=== PATIENT | female | born 1955 | race Two or more races ===

== ENCOUNTER → 2016-09-23 | Outpatient (CLI) | payer OTHER ==
--- NOTE | 2016-09-23 10:35 | RADRPT ---
PROCEDURE: Left knee x-ray CLINICAL INDICATION: Pain TECHNIQUE: AP, lateral, PA flexion and sunrise views were obtained of the left knee were obtained. COMPARISON: None FINDINGS: There is mild degenerative joint disease of the left knee to the medial compartment. There is a cur vilinear lucency involving the inferior distal medial femoral condyle consistent with avascular necr osis. No acute fracture or dislocation. The bony mineralization is normal without focal bony blast ic or lytic lesions. No evidence of a left knee joint effusion. Soft tissues are otherwise unremar kable. IMPRESSION: 1. Mild degenerate joint disease left knee. 2. Changes involving the medial left femoral condyle as above consistent with avascular process. A n MRI of the left knee is suggested if clinically indicated for further evaluation. RPTAT:AAJJ Physician Emelia Date Time Electronically viewed and signed by Physician Emelia on 09/23/2016 10:35 BM/
== END | disposition home or self-care (01) ==
LOC: HKI 10:17
PROVIDERS: ATTEND Orthopaedic Surgery
DX: M25.562 Pain in left knee (principal); S83.232A Complex tear of medial meniscus, current injury, left knee, initial encounter; S80.02XA Contusion of left knee, initial encounter
CPT/HCPCS: 73564; Z7500; G0463

== ENCOUNTER → 2016-11-05 | Outpatient (CLI) | payer OTHER ==
--- NOTE | 2016-11-06 03:14 | HKNOTE ---
DATE OF SERVICE: 11/05/2016 CHIEF COMPLAINT: Left knee pain. HISTORY OF PRESENT ILLNESS: This is a 61-year-old female who is complaining of pain in the left knee for the last several months. The patient had a fall with a twisting injury approximately 4 months ago. She has had catching and locking of the left knee. She has taken pain medications, with no pain relief. She is using a cane for ambulation. She does not use any braces. The pain is constant, without any alleviating factors. It is aggravated by walking. PHYSICAL EXAMINATION: A well-developed, well-nourished female in no acute distress. GAIT: Antalgic gait. KNEES: Left knee, there is neutral alignment of the left knee. There is tenderness to palpation over the medial joint line. There is no tenderness over the lateral joint line; 0 to 120 degrees range of motion. Negative Ginny. Negative anterior drawer. Negative posterior drawer. Positive Lamonte test. Stable to varus/valgus stress. MOTOR STRENGTH: Is 5/5 in the quads, hamstrings, tibialis anterior, extensor hallus longus, and gastrocsoleus. IMAGING: MRI of left knee. MRI of left knee dated 08/18/2016 shows an oblique tear of the posterior horn of the medial meniscus extending into the medial meniscus body. The lateral meniscus is intact. The ACL, PCL, and collateral ligaments are intact. There is a 14-mm sclerosis along the weightbearing aspect of the medial femoral condyle. ASSESSMENT: A 61-year-old female with a complex left knee posterior horn medial meniscus tear. PLAN: We will request authorization for left knee arthroscopy. The patient has failed nonoperative management and she continues to have mechanical symptoms. I discussed the risks associated with surgery which include, but are not limited to, infection, deep venous thrombosis, pulmonary embolism, damage to neurovascular structures, numbness around the incision site, continued pain, progression of arthritis, need for knee replacement, heart attack, stroke, risks associated with anesthesia, and even . The patient would like to proceed with surgery. We will call her for date of surgery pending authorization. Dictated By: Maryana Recinos MD /mindi/jd /Document#: [id number]
== END | disposition home or self-care (01) ==
LOC: HKI 14:41
PROVIDERS: ATTEND Orthopaedic Surgery Adult Reconstructive Orthopaedic Surgery
DX: M25.562 Pain in left knee (principal); S83.232A Complex tear of medial meniscus, current injury, left knee, initial encounter; W19.XXXA Unspecified fall, initial encounter; X50.1XXA Overexertion from prolonged static or awkward postures, initial encounter
CPT/HCPCS: G0463

== ENCOUNTER 2016-12-11 05:34 | Day surgery (SDC) | payer OTHER ==
[2016-12-10 10:52] VITALS: Ht 154.9 cm; Wt 87.0 kg
[~2016-12-11] VITALS: Ht 154.9 cm; Wt 87.0 kg
[2016-12-11] VITALS (12 sets, daily range): BP systolic 136–170; BP diastolic 62–80; PULSE 62–88; RESP 14–18
[2016-12-11] MEDS ORDERED: LACTATED RINGER'S 1,000 ML IV* SCH (06:00)
[2016-12-11] MEDS ORDERED: DEXAMETHASONE 4 MG/ML 1 ML INJ IV ONE (06:00)
[2016-12-11] MEDS ORDERED: CEFAZOLIN 2 GM/50 ML (PMX) 50 ML IVPB ONE (06:00)
[2016-12-11] MEDS ORDERED: ACETAMINOPHEN 1000MG/100ML IV 100 ML IVPB ONE (06:00)
[2016-12-11] MEDS ORDERED: CELECOXIB 200 MG CAP PO ONE (06:00)
[2016-12-11] MEDS ORDERED: ONDANSETRON 4 MG INJ IV ONE (06:00)
[2016-12-11] MEDS ORDERED: LANSOPRAZOLE 30 MG CAP PO ONE (06:00)
[2016-12-11] MEDS ORDERED: oxyCODONE (CR) 10 MG TAB [oxyCONTIN] PO ONE (06:00)
[2016-12-11] MEDS ORDERED: ACET325T45 PO (06:38)
[2016-12-11] MEDS ORDERED: LEVO75TA5 PO (06:38)
[2016-12-11] MEDS ORDERED: AMLO-145 PO (06:38)
[2016-12-11] MEDS ORDERED: HYDR25TA6 PO (06:38)
[2016-12-11] MEDS ORDERED: LOSA50TA6 PO (06:38)
[2016-12-11] MEDS ORDERED: OMEP40CA6 PO (06:38)
[2016-12-11] MEDS ORDERED: ROCURONIUM 50 MG INJ ONE (07:00)
[2016-12-11] MEDS ORDERED: SUCCINYLCHOLINE CHLORIDE 100 MG/5 ML SYG IV ONE (07:00)
[2016-12-11] MEDS ORDERED: CEFAZOLIN 1 GM INJ ONE ×2 (07:00→08:29)
--- NOTE | 2016-12-11 07:30 | HPN ---
Date/Time of Note Date/Time of Note DATE: 12/11/16 TIME: 07:29 Interval H&P Admission Note Pt. seen H&P reviewed: No system changes BARRINGTON HERNANDEZ MD Dec 11, 2016 07:30
[2016-12-11] MEDS ORDERED: FENTAnyl 50 MCG/ML VIAL ONE (07:33)
[2016-12-11] MEDS ORDERED: LIDOCAINE 1% (STERILE-PAK) 30 ML INJ ONE (08:10)
[2016-12-11] MEDS ORDERED: DEXAMETHASONE 4 MG/ML 1 ML INJ ONE (08:25)
[2016-12-11] MEDS ORDERED: METHYLPREDNISOLONE ACET 80 MG/ML 1 ML ONE (08:26)
[2016-12-11] MEDS ORDERED: PROPOFOL 20 ML ONE (08:29)
[2016-12-11] MEDS ORDERED: LIDOCAINE 2% (SDV) 5 ML INJ ONE (08:29)
[2016-12-11] MEDS ORDERED: SUGAMMADEX SODIUM 200 MG/2 ML VIAL IV ONE (08:29)
[2016-12-11] MEDS ORDERED: FENTAnyl 50 MCG/ML VIAL IV PRN ×2 (08:30)
[2016-12-11] MEDS ORDERED: LABETALOL HCL 20MG INJ IV PRN (08:30)
[2016-12-11] MEDS ORDERED: ONDANSETRON 4 MG INJ IV PRN (08:30)
[2016-12-11] MEDS ORDERED: DIPHENHYDRAMINE 50 MG INJ IV PRN (08:30)
[2016-12-11] MEDS ORDERED: MEPERIDINE 25 MG INJ IV PRN (08:30)
[2016-12-11] MEDS ORDERED: METOCLOPRAMIDE 10 MG INJ IV PRN (08:30)
[2016-12-11] MEDS ORDERED: HYDROmorphONE (0.2 MG/ML) 10ML SYG IV PRN ×3 (08:30)
--- NOTE | 2016-12-11 09:09 | SIPON ---
Date/Time of Note Date/Time of Note DATE: 12/11/16 TIME: 09:08 Operative Report Preoperative Diagnosis Left knee medial meniscus tear Postoperative Diagnosis Left knee patellofemoral chondromalacia Left knee medial femoral condyle chondromalacia Operation/Procedure Performed Left knee diagnostic arthroscopy Left knee corticosteroid injection Surgeon Maryana Recinos MD content assistant None Anesthesia: general Estimated blood loss: minimal Transfusion Required none Specimen None Grafts/Implants none Complications none MARYANA RECINOS MD Dec 11, 2016 09:09
--- NOTE | 2016-12-11 10:26 | OPR ---
DATE OF OPERATION: 12/11/2016 SURGEON: Maryana Recinos MD. ASSOCIATE DRAFTER: None. PREOPERATIVE DIAGNOSIS: Left knee posterior horn medial meniscus tear. POSTOPERATIVE DIAGNOSIS: 1. Left knee chondromalacia patellofemoral joint. 2. 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 PROCEDURE PERFORMED: 1. Left knee diagnostic arthroscopy. 2. Left knee corticosteroid injection. ANESTHESIOLOGIST: Dr. Ritter. ANESTHESIA: General. ESTIMATED BLOOD LOSS: Minimal. COMPLICATIONS: None. SPECIMENS: None. TOURNIQUET TIME: 12 minutes at 250 mmHg. DISPOSITION: To PACU in stable condition. INDICATION FOR PROCEDURE: This is a 61-year-old female with left knee pain and MRI findings of a me dial meniscus tear. Risks, benefits, alternatives of surgical intervention were discussed with the patient and informed consent was obtained. DETAILS OF PROCEDURE: The patient was met in the preoperative suite. The correct operative site wa s confirmed and marked. She was then brought into operating room. After induction of general anest hesia, she was placed in the supine position on the operating table. A tourniquet was applied to th e left upper thigh and the left lower extremity was prepped and draped in the usual sterile fashion. Before starting, a timeout was taken to identify the correct operative site and to confirm the pre operative antibiotics consisting of 1 gram of IV Ancef was administered. At this point, the left le g was then elevated and exsanguinated with an Esmarch and the tourniquet was then insufflated for th e above noted time. An incision was made for the lateral portal, and the scope was then introduced with visualization of the patellofemoral joint. There was extensive chondromalacia of the patellofemoral joint noted. T he scope was then entered into the medial gutter. No loose bodies were identified. The scope was t hen introduced into the medial compartment. There is grade III chondromalacia of the medial femoral condyle. The medial meniscus was then visualized. No tear was identified. The arthroscope was th en introduced into the intercondylar notch. The anterior and posterior cruciate ligaments were then visualized and noted to be intact. The arthroscope was then introduced into the lateral compartmen t. No evidence of chondromalacia or meniscus tear was identified. No other abnormalities were seen . All counts were correct. The instruments were removed. The knee was then distilled with 1 mL of Depo-Medrol along with 3 mL of 1% lidocaine. There were no complications and the wound was closed with a 2-0 nylon in interrupted fashion. A sterile dressing followed by a total groin Yoan wrap was applied. POSTOPERATIVE CARE: Patient will be weightbearing as tolerated. She will receive crutches for ambu lation. She will be discharged home with pain medications. She will follow up within 2 weeks posto peratively. Dictated By: MARYANA CAEMRON/DUTCH Conf#: [id number] DID#: [id number]
== END 2016-12-11 10:54 | disposition home or self-care (01) ==
LOC: SDS 05:34
PROVIDERS: ATTEND Orthopaedic Surgery Adult Reconstructive Orthopaedic Surgery
DX: M94.262 Chondromalacia, left knee (principal); M25.562 Pain in left knee; I10 Essential (primary) hypertension; E66.01 Morbid (severe) obesity due to excess calories
CPT/HCPCS: 29870; J0131; J0690; J1040; J1100; J1170; J2175; J2405; J3010; J7120; Z7512; Z7610

== ENCOUNTER → 2016-12-24 | Outpatient (CLI) | payer OTHER ==
[~2016-12-24] MED LIST: ACET325T45 PO; AMLO-145 PO; HYDR25TA6 PO; LEVO75TA5 PO; LOSA50TA6 PO; OMEP40CA6 PO
--- NOTE | 2016-12-25 03:28 | HKNOTE ---
DATE OF SERVICE: 12/24/2016 CHIEF COMPLAINT: Followup. HISTORY OF PRESENT ILLNESS: This is a 61-year-old female who is status post left knee arthroscopy. She is doing well. She has no complaints. She denies any locking, catching or instability. She i s using a walker for ambulation. She denies any chest pain, shortness of breath. LEFT KNEE: Incisions have healed. Sutures are intact. There is no drainage. Calf is soft, nonten sukhwinder with a negative Homans. MOTOR STRENGTH: 5/5 hamstrings, quadriceps, tibialis anterior, gastroc soleus. IMPRESSION: A 61-year-old female status post a left knee arthroscopy. PLAN: She can continue to be weightbearing as tolerated. She will begin outpatient physical therap y. She will follow up in 3 months. Dictated By: BARRINGTON CAMERON/DUTCH Conf#: [id number] DID#: [id number]
== END | disposition home or self-care (01) ==
LOC: HKI 14:05
PROVIDERS: ATTEND Orthopaedic Surgery Adult Reconstructive Orthopaedic Surgery
DX: Z09 Encounter for follow-up examination after completed treatment for conditions other than malignant neoplasm (principal); Z96.652 Presence of left artificial knee joint
CPT/HCPCS: G0463

== ENCOUNTER → 2017-04-07 | Outpatient (CLI) | END | disposition home or self-care (01) ==

== ENCOUNTER → 2017-08-18 | Outpatient (CLI) | END | disposition home or self-care (01) ==

== ENCOUNTER → 2017-09-09 | Outpatient (CLI) | END | disposition home or self-care (01) ==